=== PATIENT | male | born 1965 | race Caucasian/White ===

== ENCOUNTER 2024-08-11 17:12 | Emergency (ER) | payer BC, SELFPAY ==
[2024-08-11 17:18] VITALS: BP 154/97
--- NOTE | 2024-08-11 19:25 | ED.SKININJ ---
HPI-Injury
General
Chief Complaint: Skin Surface Trauma
Source: patient
Exam Limitations: none
Time Seen by Provider: 08/11/24 18:48
History of Present Illness-Injury
Initial Injury comments:
58-year-old male with laceration to left leg he sustained today. A piece of marble fell and cut his leg. Last tetanus unknown. He denies pain numbness or tingling. No loss of function. No other complaints at this time
Past History
Past History
ED Past Medical History: None
ED Past Surgical History: None
Phy Exam
Physical Exam
Physical Exam:
General: Well-appearing male no acute distress
Skin: 3 cm vertically oriented laceration distal medial left dempsey anteriorly without tendon or vascular involvement no significant bleeding
Vascular 2+ DP and PT ankle and foot
Musculoskeletal exam: Full range of motion left ankle
Course
Orders/Labs/Results
Orders:
Orders
08/11/24 19:25
Tetanus/Diphth/Acelpertussis [Adacel] 0.5 ml IM .ONCE ONE
Vital Signs
Initial and Last Documented VS:
Initial Vital Signs
Temp Pulse Resp BP Pulse Ox
98 F 98 16 154/97 98
08/11/24 17:18 08/11/24 17:18 08/11/24 17:18 08/11/24 17:18 08/11/24 17:18
Last Documented Vital Signs
Temp Pulse Resp BP Pulse Ox
98 F 98 16 154/97 98
08/11/24 17:18 08/11/24 17:18 08/11/24 17:18 08/11/24 17:18 08/11/24 17:18
MDM/Problems Addressed
Differential Diagnosis Includes:
Laceration left leg. This was copiously irrigated with saline anesthetized with 1% lidocaine with epinephrine and closed with 4-0 Prolene sutures using horizontal mattress sutures. Total of 4 sutures were required to do so. Tetanus vaccine
updated a dressing was applied patient discharged home wound care instructions
*Pulse Oximetry
SaO2: 98
Oxygen Mode of Delivery: Room air
Patient hypoxic: no
*Critical Care Note
Total Time (30-74mins, 75-104mins- exclusive of procedures): Not Applicable
ED Attending Note
-
Portions of this chart may have been created with voice recognition software.� Occasional wrong word or��sound alike� substitutions may have occurred due to the inherent limitations of voice recognition software.
Discharge Plan
Departure
Patient Disposition: Home (Routine Discharge)
Date of Disposition: 08/11/24
Time of Disposition: 19:27
Patient with high blood pressure during this ER visit?: No
Discharge Problem:
Laceration
Instructions: Laceration Repair With Stitches (DC)
Prescriptions:
No Action
cephalexin 500 MG capsule
500 mg PO BID Qty: 19 0RF
Referrals:
Kadi Cerrato PA-C [Family Provider, Family Practice]
Activity Restrictions/Additional Instructions:
Keep clean. Pat dry for get it wet. Have sutures removed in 12 to 14 days.
Interventions
Interventions:
*Risk Screen - Suicide Last Done: 08/11/24 17:18
*Neglect/Abuse Screening Last Done: 08/11/24 17:18
ED-Skin Assessment Last Done: 08/11/24 19:22
Discharge Date and Time
Print Language: ESTONIAN
[2024-08-11] MEDS: ADACEL 0.5 ML IM (20:14)
== END 2024-08-11 20:24 | disposition home or self-care (01) ==
LOC: EMR 17:12
PROVIDERS: EMERGENCY PHYSICIAN Emergency Medicine; FAMILY PHYSICIAN Physician Assistant Medical
DX: S81.812A Laceration without foreign body, left lower leg, initial encounter (principal); X58.XXXA Exposure to other specified factors, initial encounter; Z23 Encounter for immunization
CPT/HCPCS: 99283; 12001; 90471; 90715